=== PATIENT | male | born 1980 | race Caucasian/White ===

== ENCOUNTER 2025-03-09 10:17 | Outpatient (RCR) | payer BC, SELFPAY | END 2025-03-09 23:59 | disposition home or self-care (01) | LOC: RPT 10:17 | PROVIDERS: ATTENDING PHYSICIAN Surgery; FAMILY PHYSICIAN Family Medicine | DX: N41.0 Acute prostatitis (principal); R39.12 Poor urinary stream; L29.3 Anogenital pruritus, unspecified; Z73.6 Limitation of activities due to disability; R10.20 Pelvic and perineal pain unspecified side | CPT/HCPCS: 97110; 97140; 97161; 97530 ==

== ENCOUNTER 2025-04-09 14:21 | Outpatient (RCR) | payer BC, SELFPAY | END 2025-04-09 23:59 | disposition home or self-care (01) | LOC: RPT 14:21 | PROVIDERS: ATTENDING PHYSICIAN Surgery; FAMILY PHYSICIAN Family Medicine | DX: N41.0 Acute prostatitis (principal); R39.12 Poor urinary stream; L29.3 Anogenital pruritus, unspecified; Z73.6 Limitation of activities due to disability; R10.20 Pelvic and perineal pain unspecified side | CPT/HCPCS: 97014; 97110; 97140; 97530 ==